=== PATIENT | female | born 2000 | race Hispanic/Latino ===

== ENCOUNTER 2024-05-21 23:12 | Emergency (ER) | payer BC ==
[2024-05-21] MEDS ORDERED: Ketorolac Tromethamine 30 MG (1 mL) VIAL ONE (23:36)
[2024-05-22 00:25] LABS: Influenza A by NAA Not Detected (NotDetected); Influenza B by NAA Not Detected (NotDetected); SARS-CoV-2 NAA Rapid Test Not Detected (NotDetected)
== END 2024-05-22 00:34 | disposition home or self-care (01) ==
LOC: CSHERS 23:12
DX: K04.7 Periapical abscess without sinus (principal); K05.10 Chronic gingivitis, plaque induced
CPT/HCPCS: 87081; 87430; 96372; 99283; J1885

== ENCOUNTER 2024-11-13 21:15 | Emergency (ER) | payer BC ==
[2024-11-13] MEDS ORDERED: Ondansetron ODT 4 MG TAB ONE (22:26)
[2024-11-13] MEDS ORDERED: Loperamide HCl 2 MG CAP ONE (22:37)
[2024-11-13] MEDS ORDERED: Acetaminophen 500 MG TAB ONE (22:53)
== END 2024-11-13 23:00 | disposition home or self-care (01) ==
LOC: CSHERS 21:15
DX: R11.2 Nausea with vomiting, unspecified (principal); R19.7 Diarrhea, unspecified
CPT/HCPCS: 99283; Q0162